=== PATIENT | female | born 1950 | race Caucasian/White ===

== ENCOUNTER 2017-07-02 01:01 | Emergency (ER) | payer MEDICARE, MEDICAID ==
[2017-07-02] MEDS ORDERED: MORPHINE SULFATE 5 MG/ML PFS IVP ONE (01:28)
--- NOTE | 2017-07-02 01:36 | Emergency Department Record ---
History of Present Illness - General Chief complaint: Flank Pain Stated complaint: LEFT LOWER BACK PAIN Time Seen by Provider: 07/02/17 01:17 Source: Patient Mode of Arrival: EMS Limitations: No limitations - History of Present Illness Initial comments: pt has been helping her son move and overdid it. she now has lumbar pain that radiates to l buttock. she has no numbness and no problems w bowel or bladder. she has a previous hx of bad discs. Onset/Timin -: Days(s) Radiation: L flank Severity: Severe Severity scale (1-10): 8 Quality: Aching Consistency: Constant Improves with: None Worsens with: Movement Patient : No Associated Symptoms: Nausea/vomiting - Related Data Sexually active: No Home Medications Medication Instructions Recorded Confirmed Last Taken Acetaminophen [Tylenol Extra 500 mg PO DAILY 07/02/17 07/02/17 Unknown Strength] Albuterol Sulfate [Ventolin Hfa] 1 - 2 puff IH .EVERY 4-6 HOURS PRN 07/02/17 Unknown Ascorbic Acid [Vitamin C] 500 mg PO DAILY 07/02/17 07/02/17 Unknown Aspirin Enteric-Coated [Ecotrin 81 mg PO DAILY 07/02/17 07/02/17 Unknown (EC)] Atorvastatin Calcium 40 mg PO QHS 07/02/17 07/02/17 Unknown Calcium Citrate/Vitamin D3 1 each PO DAILY 07/02/17 07/02/17 Unknown [Calcium Citrate - Vit D Caplet] Diphenhydramine HCl [Allergy 25 mg PO DAILY 07/02/17 07/02/17 Unknown Relief] Fluticasone Propionate [Flonase] 2 spray EACH NARES DAILY 07/02/17 07/02/17 Unknown Lisinopril [Zestril] 5 mg PO DAILY 07/02/17 07/02/17 Unknown Previous Rx's Medication Instructions Recorded Hydrocodone/Acetaminophen [[place] 0.5 - 1 tab PO TID PRN #7 tab 07/02/17 5mg/325mg] Allergies Allergy/AdvReac Type Severity Reaction Status Date / Time cefaclor [From Ceclor] Allergy RASH Verified 07/02/17 01:07 cyclobenzaprine Allergy PT UNSURE Verified 07/02/17 01:07 [From Flexeril] OF REACTION Penicillins Allergy RASH Verified 07/02/17 01:07 Sulfa (Sulfonamide Allergy RASH Verified 07/02/17 01:07 Antibiotics) NSAIDS (Non-Steroidal AdvReac hx of Verified 07/02/17 01:07 Anti-Inflamma Brain Bleed Travel Screening - Travel/Exposure Within Last 30 Days Have you traveled within the last 30 days?: No Review of Systems Reviewed: No additional complaints except as noted below Constitutional: Reports: As per HPI. Denies: Chills, Fever, Malaise, Night sweats, Weakness, Weight change Eyes: Reports: As per HPI. Denies: Eye discharge, Eye pain, Photophobia, Vision change ENT: Reports: As per HPI. Denies: Congestion, Dental pain, Ear pain, Epistaxis , Hearing loss, Throat pain Respiratory: Reports: As per HPI. Denies: Cough, Dyspnea, Hemoptysis, Stridor, Wheezes Cardiovascular: Reports: As per HPI. Denies: Arrhythmia, Chest pain, Dyspnea on exertion, Edema, Murmurs, Orthopnea, Palpitations, Paroxysmal nocturnal dyspnea, Rheumatic Fever, Syncope Endocrine: Reports: As per HPI. Denies: Fatigue, Heat or cold intolerance, Polydipsia, Polyuria Gastrointestinal: Reports: As per HPI. Denies: Abdominal pain, Constipation, Diarrhea, Hematemesis, Hematochezia, Melena, Nausea, Vomiting Genitourinary: Reports: As per HPI. Denies: Abnormal menses, Discharge, Dyspareunia, Dysuria, Frequency, Hematuria, Incontinence, Retention, Urgency Musculoskeletal: Reports: As per HPI. Denies: Arthralgia, Back pain, Gout, Joint swelling, Myalgia, Neck pain Skin: Reports: As per HPI. Denies: Bruising, Change in color, Change in hair/ nails, Lesions, Pruritus, Rash Neurological: Reports: As per HPI. Denies: Abnormal gait, Confusion, Headache, Numbness, Paresthesias, Seizure, Tingling, Tremors, Vertigo, Weakness Psychiatric: Reports: As per HPI. Denies: Anxiety, Auditory hallucinations, Depression, Homicidal thoughts, Suicidal thoughts, Visual hallucinations Hematological/Lymphatic: Reports: As per HPI. Denies: Anemia, Blood Clots, Easy bleeding, Easy bruising, Swollen glands Past Medical History - SOCIAL HISTORY Smoking Status: Current every day smoker Alcohol Use: None Drug Use: None - RESPIRATORY Hx Respiratory Disorders: Yes Hx COPD: Yes - CARDIOVASCULAR Hx Cardio Disorders: Yes Hx Hypertension: Yes - NEURO Hx Neuro Disorders: Yes Hx CVA: Yes (Hemorrhagic Stroke) - GI Hx GI Disorders: Yes Hx Reflux: Yes - Hx Genitourinary Disorders: No - ENDOCRINE Hx Endocrine Disorders: No - MUSCULOSKELETAL Hx Musculoskeletal Disorders: Yes - PSYCH Hx Psych Problems: Yes Hx Depression: Yes - HEMATOLOGY/ONCOLOGY Hx Hematology/Oncology Disorders: No Family Medical History Any Significant Family History?: Yes Hx Cancer: Father, Children, Brother/Sister Hx Diabetes: Brother/Sister, Grandparents *Diabetes Comment: Aunt, Uncle Hx Heart Disease: Mother, Grandparents Physical Exam - General General Appearance: Alert, Oriented x3, Cooperative, Mild distress - Head Head exam: Normal inspection - Eye Eye exam: Normal appearance, PERRL, EOMI Pupils: Normal accommodation - ENT ENT exam: Normal exam, Mucous membranes moist, Normal external ear exam, Normal orophraynx Ear exam: Normal external inspection. negative: External canal tenderness Nasal Exam: Normal inspection. negative: Discharge, Sinus tenderness Mouth exam: Normal external inspection, Tongue normal Teeth exam: Normal inspection. negative: Dental caries Throat exam: Normal inspection. negative: Tonsillar erythema, Tonsillar exudate - Neck Neck exam: Normal inspection, Full ROM. negative: Tenderness - Respiratory Respiratory exam: Normal lung sounds bilaterally. negative: Respiratory distress - Cardiovascular Cardiovascular Exam: Regular rate, Normal rhythm, Normal heart sounds - GI/Abdominal GI/Abdominal exam: Soft, Normal bowel sounds. negative: Tenderness - Rectal Rectal exam: Deferred - exam: Deferred - Extremities Extremities exam: Normal inspection, Full ROM, Normal capillary refill. negative: Tenderness - Back Back exam: Reports: Muscle spasm, Paraspinal tenderness, Tenderness. Denies: Full ROM, Rash noted - Neurological Neurological exam: Alert, CN II-XII intact, Normal gait, Oriented X3 - Psychiatric Psychiatric exam: Normal affect, Normal mood - Skin Skin exam: Dry, Intact, Normal color, Warm Course Vital Signs 07/02/17 01:04 Temperature 98.3 F Pulse Rate [ 77 Pulse Ox Probe] Respiratory 18 Rate Blood Pressure 136/97 [Right Arm] Pulse Ox 97 - Reevaluation(s) Reevaluation #1: 07/02/17 02:25 pt feels better. Disposition Disposition: Discharge Clinical Impression: Lumbar radiculopathy, acute Disposition: Home, Self-Care Condition: (1) Good Instructions: Lumbar Radiculopathy (ED) Additional Instructions: follow up with family doctor. return sooner if worse. no lifting greater then 5 pounds for 5 days Prescriptions: Hydrocodone/Acetaminophen [[place] 5mg/325mg] 0.5 - 1 tab PO TID PRN #7 tab PRN Reason: Pain - General Forms: Patient Portal Access Quality - Quality Measures Quality Measures: N/A - Blood Pressure Screening Does Patient Have Any of the Following: No Blood Pressure Classification: Hypertensive Reading Systolic Measurement: 136 Diastolic Measurement: 97 Screening for High Blood Pressure: < Pre-Hypertensive BP, F/U Documented > [ [id number]] Pre-Hypertensive Follow-up Interventions: Follow-up with rescreen every year.
[2017-07-02] MEDS ORDERED: HYDROCODONE/APAP 5/325MG TABLET PO ONE (02:21)
--- NOTE | 2017-07-02 11:01 | RADIOLOGY REPORT ---
EXAM: LUMBAR SPINE, TWO VIEWS HISTORY: LIFTING INJURY, PERSISTENT LOW BACK PAIN. TECHNIQUE: Two views of the lumbar spine were obtained. Comparison: None. Encounter: Initial. FINDINGS: There has been previous fusion at the L3-L4 level with posterior spinal rods and transpedicular screws. Interbody spacer. Fusion appears solid with no hardware failure. Anatomic alignment. There is severe degenerative disk disease at L5-S1 manifested by loss of stature, end plate osteophytes and vacuum disk. Moderate disk disease at the remaining levels. Advanced facet arthropathy at L4-L5. No fracture or subluxation. IMPRESSION: 1. MULTILEVEL DEGENERATIVE CHANGE OF THE LUMBAR SPINE MOST PRONOUNCED AT L5- S1. NO FRACTURE OR SUBLUXATION. 2. STATUS POST POSTERIOR FUSION AT L3-L4 WITH ANATOMIC ALIGNMENT AND NO HARDWARE FAILURE. JOB NUMBER: [id number] MTDD
== END 2017-07-02 02:55 | disposition home or self-care (01) ==
LOC: ER 01:01
DX: G89.11 Acute pain due to trauma (principal); M54.5 Low back pain; M54.16 Radiculopathy, lumbar region; R11.2 Nausea with vomiting, unspecified; J44.9 Chronic obstructive pulmonary disease, unspecified; I10 Essential (primary) hypertension; F17.210 Nicotine dependence, cigarettes, uncomplicated; X50.9XXA Other and unspecified overexertion or strenuous movements or postures, initial encounter; Y93.E6 Activity, residential relocation
CPT/HCPCS: 99284 ×2; 96374; 72100; J2270